=== PATIENT | female | born 1990 | race Caucasian/White ===

== ENCOUNTER 2023-05-07 20:32 | Emergency (ER) | payer OTHER, SELFPAY ==
[2023-05-07 21:04] VITALS: BP 120/76; PULSE 84; RESP 16; TEMP 36.7; O2SAT 100; BMI 20.5
--- NOTE | 2023-05-07 21:14 | ED_ITS ---
HPI - Extremity Injury (Lower) General Chief Complaint: Extremity Problem, Nontraumatic Stated Complaint: SEVERE INNER HIP PAIN Time Seen by Provider: 05/07/23 20:54 History of Present Illness HPI Narrative: presents complaining of burning pain of her right hip and pelvis. States 2017 sh rosalia had cervical cancer and has complete hysterectomy . Her ovaries remain. state she has had ongoing hip pain for past 10 months. States her PCP ordered MRI 09/2022 but she had life issues to deal with including being homeless. test was never done. Now states burning pain of her hip has increased. no new injuries. Denies dysuria but has some discomfort with passing her bowel. No fever or flank pain Related Data Allergies Allergy/AdvReac Type Severity Reaction Status Date / Time fentanyl Allergy Unknown Verified 05/07/23 21:15 hydromorphone [From Dilaudid] Allergy Unknown Verified 05/07/23 21:15 Review of Systems ROS Status of ROS 10 or more systems reviewed and unremarkable except as noted in history and below Exam Constitutional Common normals: no apparent distress, oriented x3, alert and well nourished HENDE Common normals: normocephalic and head/scalp atraumatic Eye Common normals: EOMs intact bilaterally and conjunctivae normal Chest Common normals: inspection of chest normal and palpation of chest normal Respiratory Common normals: normal respiratory effort, no retractions, no use of accessory muscles and clear to auscultation bilaterally Cardio Common normals: regular rate, regular rhythm, S1 normal heart sound and S2 normal heart sound GI Other: mild-mod tenderness RLQ Back & Pelvis Other: right hip tender FROM of the right hip Extremity Common normals: normal to inspection and full ROM Neuro Common normals: oriented x3, moves all extremities, no focal motor deficits and no sensory deficits noted Psych Appearance: grossly normal MDM - Extremity Injury (Lower) MDM Narrative Medical decision making narrative: patient presents with chronic right hip pain and found to have RLQ tenderness. C T without abnormal bony findings. found to have ovarian cyst and small segment intussusception. 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 Imaging Data CT scan - abdomen: Radiologist's impression: ice: 05/07/23 Procedure(s): CT abdomen pelvis w con Accession Number(s): [id number] cc: Physician,Non-Staff M.DJesusita~ The [address] [address] Patient Name: MATEUS CLOUD MRN: [id number] date: 1990 Sex: F Assigned Patient Location: ER Current Patient Location: ER Accession/Order Number: [id number] Exam Date: 05/07/2023 22:44 Report Date: 05/07/2023 23:17 At the request of: SHARLA HILLMAN Procedure: CT abdomen pelvis w con EXAMINATION: CT abdomen pelvis w con HISTORY: RLQ and right hip pain for one week, increasing in severity COMPARISON: CT abdomen pelvis 06/18/2022 TECHNIQUE: Axial, Coronal, and Sagittal images were obtained without and/or with IV contrast as indicated by examination type. Dose reduction techniques were achieved by using automated exposure control and/or adjustment of mA and/or kV according to patient size and/or use of iterative reconstruction technique. FINDINGS: LUNG BASES: No visible pulmonary or pleural disease. LIVER: No enlargement, atrophy, suspicious density, or significant focal lesion. BILIARY: No dilatation or calcification. PANCREAS: No lesion, fluid collection, or abnormal duct dilatation. SPLEEN: No enlargement or focal lesion. ADRENALS: No mass or enlargement. KIDNEYS: No mass, obstruction, or calcification. BOWEL/MESENTERY: Small bowel-small bowel short segment intussusception within left pelvis. No visible mass, obstruction, or bowel wall thickening. Normal appendix. AORTA/VASCULAR: No aneurysm or dissection. RETROPERITONEUM: No mass or adenopathy. LYMPH NODES: No adenopathy. URINARY BLADDER: Borderline wall thickening of urinary bladder. No appreciable stones. PELVIC ORGANS: Right ovary contains a 2.4 cm cyst and a smaller 2.0 cm cyst. Unremarkable left ovary. Hysterectomy. ABDOMINAL WALL: No mass or hernia. BONES: No bony lesion or fracture. OTHER: Negative. CT/CT abdomen pelvis w con IMPRESSION: 1.Right ovary contains a 2.4 cm and a 2.0 cm cyst; not overtly suspicious, but may contribute to patient's symptoms. No CT evidence of torsion. 2. No acute or suspicious findings of the right hip. 3. Left lower quadrant small bowel-small bowel intussusception; these are typically transient and asymptomatic. No bowel obstruction. 4. Borderline wall thickening of urinary bladder; cystitis? Electronically authenticated by: PATRICIA CAROLINA Date: 05/07/2023 23:17 Discharge Plan Discharge Chief Complaint: Extremity Problem, Nontraumatic Clinical Impression: Ovarian cyst, Chronic pain of right hip, Abdominal pain Instructions: Ovarian Cyst (ED), Abdominal Pain (ED) Additional Instructions: follow up with your movement assembly final inspector and with your family doctor Referrals: Physician,Non-Staff, MD [Primary Care Provider] - 1 week
[2023-05-07] MEDS: 0.9 % SODIUM CHLORIDE 1,000 ML 999 ML IV (21:46)
[2023-05-07 21:55] LABS: Basophils Absolute Auto 0.1 10^3/uL (0.0-0.1); Basophils Percent Auto 0.7 % (0.2-2.0); Eosinophils Absolute Auto 0.2 10^3/uL (0.0-0.7); Eosinophils Percent Auto 2.2 % (0.9-7.0); Hemoglobin 14.5 g/dL (12.0-16.0); Immature Granulocytes Abs Auto 0.03 10^3/uL (0.00-0.03); Immature Granulocytes Pct Auto 0.4 % (0.0-0.5); Lymphocytes Absolute Auto 3.1 10^3/uL (1.2-3.8); Lymphocytes Percent Auto 40.3 % (20.5-60.0); Mean Corpuscular HGB Conc 34.5 g/dL (29.9-35.2); Mean Corpuscular Hemoglobin 31.4 pg (26.7-34.0); Mean Corpuscular Volume 90.9 fL (81.0-99.0); Mean Platelet Volume 10.7 fL (9.5-13.5); Monocytes Absolute Auto 0.5 10^3/uL (0.3-0.8); Monocytes Percent Auto 7.1 % (1.7-12.0); Neutrophils Absolute Auto 3.8 10^3/uL (1.4-6.5); Neutrophils Percent Auto 49.3 % (43.0-75.0); Platelet Count 236 10^3/uL (150-450); Red Blood Count 4.62 10^6/uL (4.20-5.40); White Blood Count 7.6 10^3/uL (4.0-11.0)
[2023-05-07 21:57] LABS: Bilirubin Urine NEGATIVE (NEGATIVE); Blood Urine NEGATIVE (NEGATIVE); Clarity Urine CLEAR (CLEAR); Color Urine YELLOW (YELLOW); Glucose Urine UA NEGATIVE (NEGATIVE); Ketones Urine TRACE mg/dL (NEGATIVE); Leukocyte Esterase Urine NEGATIVE (NEGATIVE); Nitrite Urine NEGATIVE (NEGATIVE); Protein Urine NEGATIVE (NEG/TRACE); Urobilinogen Urine 0.2 EU/dL (0.2-1.0)
[2023-05-07 22:00] LABS: Urine Microscopic Indicated NO
[2023-05-07 22:05] LABS: Amphetamine Screen Urine NEGATIVE (NEGATIVE); Barbiturates Screen Urine NEGATIVE (NEGATIVE); Benzodiazepines Screen Urine NEGATIVE (NEGATIVE); Buprenorphine Screen Urine NEGATIVE (NEGATIVE); Cannabinoid Screen Urine POSITIVE (NEGATIVE); Cocaine Screen Urine NEGATIVE (NEGATIVE); Methadone Screen Urine NEGATIVE (NEGATIVE); Methamphetamines Screen Urine NEGATIVE (NEGATIVE); Opiate Screen Urine NEGATIVE (NEGATIVE); Oxycodone Screen Urine NEGATIVE (NEGATIVE); Phencyclidine Screen Urine NEGATIVE (NEGATIVE); Tricyclic Antidepressant Urine NEGATIVE (NEGATIVE)
[2023-05-07 22:11] LABS: Alanine Aminotransferase 19 U/L (14-59); Albumin Globulin Ratio 1.3; Albumin Level 3.8 g/dL (3.4-5.0); Alkaline Phosphatase 56 U/L (46-116); Anion Gap 8.1; Aspartate Amino Transferase 10 U/L (15-37); BUN Creatinine Ratio 13.9; Bilirubin Total 0.2 mg/dL (0.2-1.0); Calcium 9.1 mg/dL (8.5-10.1); Carbon Dioxide 31.3 mmol/L (21.0-32.0); Chloride 102 mmol/L (98-107); Estimated GFR (African America >60 (>=60); Estimated GFR (Non-African Ame >60 (>=60); Glucose 74 mg/dL (74-106); Potassium 3.4 mmol/L (3.5-5.1); Sodium 138 mmol/L (136-145); Total Protein 6.8 g/dL (6.4-8.2)
--- NOTE | 2023-05-07 22:19 | CT_ITS ---
[address] [address] Patient Name: MATEUS CLOUD MRN: [id number] date: 1990 Sex: F Assigned Patient Location: ER Current Patient Location: ER Accession/Order Number: [id number] Exam Date: 05/07/2023 22:44 Report Date: 05/07/2023 23:17 At the request of: SHARLA HILLMAN Procedure: CT abdomen pelvis w con EXAMINATION: CT abdomen pelvis w con HISTORY: RLQ and right hip pain for one week, increasing in severity COMPARISON: CT abdomen pelvis 06/18/2022 TECHNIQUE: Axial, Coronal, and Sagittal images were obtained without and/or with IV contrast as indicated by examination type. Dose reduction techniques were achieved by using automated exposure control and/or adjustment of mA and/or kV according to patient size and/or use of iterative reconstruction technique. FINDINGS: LUNG BASES: No visible pulmonary or pleural disease. LIVER: No enlargement, atrophy, suspicious density, or significant focal lesion. BILIARY: No dilatation or calcification. PANCREAS: No lesion, fluid collection, or abnormal duct dilatation. SPLEEN: No enlargement or focal lesion. ADRENALS: No mass or enlargement. KIDNEYS: No mass, obstruction, or calcification. BOWEL/MESENTERY: Small bowel-small bowel short segment intussusception within left pelvis. No visible mass, obstruction, or bowel wall thickening. Normal appendix. AORTA/VASCULAR: No aneurysm or dissection. RETROPERITONEUM: No mass or adenopathy. LYMPH NODES: No adenopathy. URINARY BLADDER: Borderline wall thickening of urinary bladder. No appreciable stones. PELVIC ORGANS: Right ovary contains a 2.4 cm cyst and a smaller 2.0 cm cyst. Unremarkable left ovary. Hysterectomy. ABDOMINAL WALL: No mass or hernia. BONES: No bony lesion or fracture. OTHER: Negative. CT/CT abdomen pelvis w con IMPRESSION: 1.Right ovary contains a 2.4 cm and a 2.0 cm cyst; not overtly suspicious, but may contribute to patient's symptoms. No CT evidence of torsion. 2. No acute or suspicious findings of the right hip. 3. Left lower quadrant small bowel-small bowel intussusception; these are typically transient and asymptomatic. No bowel obstruction. 4. Borderline wall thickening of urinary bladder; cystitis? Electronically authenticated by: PATRICIA CAROLINA Date: 05/07/2023 23:17
[2023-05-08] MEDS: KETOROLAC TROMETHAMINE 30 MG/ML VIAL IVP (00:27)
== END 2023-05-08 00:46 | disposition home or self-care (01) ==
PROVIDERS: Emergency Provider Internal Medicine
DX: R10.9 Unspecified abdominal pain (principal); N83.201 Unspecified ovarian cyst, right side; G89.29 Other chronic pain; M25.551 Pain in right hip; Z90.710 Acquired absence of both cervix and uterus; Z85.41 Personal history of malignant neoplasm of cervix uteri; Z59.00 Homelessness unspecified
CPT/HCPCS: 36415; 74177; 80053; 80307; 81003; 85025; 96374; 99285; Q9967

== ENCOUNTER 2024-02-14 10:19 | Emergency (ER) | payer OTHER, SELFPAY ==
[2024-02-14 10:25] VITALS: BP 126/90; PULSE 62; TEMP 36.4; O2SAT 99; BMI 19.6
--- NOTE | 2024-02-14 11:07 | CT_ITS ---
[address] [address] Patient Name: MATEUS CLOUD MRN: [id number] date: 1990 Sex: F Assigned Patient Location: ER Current Patient Location: Accession/Order Number: [id number] Exam Date: 02/14/2024 11:30 Report Date: 02/14/2024 12:12 At the request of: CARLOS ALBERTO ACEVES Procedure: CT angio abdomen pelvis EXAMINATION: CT angio abdomen pelvis HISTORY: left flank pain, hx of nutcracker syndrome COMPARISON: CT abdomen pelvis 05/07/2023 TECHNIQUE: Axial, Coronal, and Sagittal CT images without and with IV contrast. Multi-planar/3-D imaging to optimize visualization of vascular anatomy. Dose reduction techniques were achieved by using automated exposure control and/or adjustment of mA and/or kV according to patient size and/or use of iterative reconstruction technique. FINDINGS: AORTA/VASCULAR: No aneurysm or dissection. CELIAC ARTERY: Normal celiac vessels. SMA: Shallow takeoff from aorta, 16 degrees angle, with 2 mm between SMA and aorta at level of duodenum. RENAL ARTERIES: Normal renal vessels. LUNG BASES: No visible pulmonary or pleural disease. LIVER: No enlargement, atrophy, abnormal density, or significant focal lesion. BILIARY: No visible dilatation or calcification. PANCREAS: No lesion, fluid collection, ductal dilatation, or atrophy. SPLEEN: No enlargement or focal lesion. ADRENALS: No mass or enlargement. KIDNEYS: No mass, obstruction, or calcification. BOWEL/MESENTERY: No visible mass, obstruction, or bowel wall thickening. RETROPERITONEUM: No mass or adenopathy. LYMPH NODES: No adenopathy. URINARY BLADDER: No visible focal wall thickening, lesion, or calculus. PELVIC ORGANS: 1.9 cm slightly irregular hypoechoic lesion suspected to be within right ovary, likely a collapsing cyst. Prior hysterectomy. ABDOMINAL WALL: No mass or hernia. BONES: No bony lesion or fracture. OTHER: Negative. CT/CT angio abdomen pelvis IMPRESSION: 1. No appreciable acute findings to account for patient's symptoms. 2. Marked compression of left renal vein and duodenum between superior mesenteric artery and aorta; nutcracker syndrome. 3. Slightly irregular hypoechoic structure within right pelvis suspected to be an ovarian cyst/collapsing cyst; slightly smaller than previously seen. Electronically authenticated by: PATRICIA CAROLINA Date: 02/14/2024 12:12
[2024-02-14] MEDS: KETOROLAC TROMETHAMINE 30 MG/ML VIAL 15 MG IVP (11:11)
--- NOTE | 2024-02-14 11:12 | ED_ITS ---
HPI - Abdominal Pain General Chief Complaint: Abdominal Pain Stated Complaint: ABDOMINAL PAIN Time Seen by Provider: 02/14/24 10:27 Mode of arrival: walk-in History of Present Illness HPI narrative: 33-year-old female to the emergency department chief complaint of acute on chronic abdominal pain. Patient reports that she has had some left-sided flank/abdominal pain has been ongoing for over a year. She reports that she was recently diagnosed with nutcracker syndrome and has been referred to the [facility] for vascular surgery opinion. She has this upcoming the first week of March. She reports that today she was visiting her boyfriend in [place] and had an increase in pain so she decided to come to the emergency department to make sure it has not gotten worse. She denies any nausea or vomiting. She reports that she has had some increased frequent stools. She denies any fever, sweats, chills. She reports dysuria without hematuria. She denies , reports status post hysterectomy. Related Data Previous Rx's ?Medication ?Instructions ?Recorded polyethylene glycol 3350 17 17 g PO DAILY PRN constipation 02/14/24 gram/dose oral powder (Miralax) #238 grams Allergies Allergy/AdvReac Type Severity Reaction Status Date / Time aripiprazole [From Abilify] Allergy Intermediate Nightmare Verified 02/14/24 10:25 fentanyl Allergy Unknown Anaphylaxis Verified 02/14/24 10:25 hydromorphone [From Dilaudid] Allergy Unknown Anaphylaxis Verified 02/14/24 10:25 Review of Systems ROS Status of ROS 10 or more systems reviewed and unremark able except as noted in history and below Exam Narrative Exam Narrative: VITALS: I have reviewed the triage vital signs. GENERAL: Well developed, well appearing adult in no acute distress. NEURO: Alert and oriented. Moves all extremities. Face is symmetric and expressive. EYES: PERRL. No scleral icterus or conjunctival injection. No discharge. HENT: Normocephalic, atraumatic. Hearing is grossly intact. Nares grossly patent and without discharge. Mucous membranes moist. NECK: No JVD. Patient moves neck without restriction. CARDIO: Rhythm regular. Normal rate. No murmur, rub, or gallop. Pulses equal bilaterally in the upper and lower extremity. No lower extremity edema. PULM: Lungs clear to auscultation in all [place]. No wheezes, rales, or rhonchi. No conversational dyspnea. No splinting, stridor, or accessory muscle use. GI/: Abdomen is soft. Mild left upper quadrant tenderness. Normoactive bowel sounds. EXTREMITIES: Symmetric muscle bulk. No joint swelling. No clubbing, cyanosis, or deformity. SKIN: Warm and dry. Normal turgor. No rash or lesions appreciated. PSYCH: Mood, affect, and interaction is appropriate to the setting. Constitutional Vital Signs, click to edit/add: Last Vital Signs Temp 97.6 F 02/14/24 10:25 Pulse 76 02/14/24 12:09 Resp 18 02/14/24 12:09 BP 122/78 02/14/24 12:09 Pulse Ox 98 02/14/24 12:09 O2 Del Method Room Air 02/14/24 10:25 Course Vital Signs Vital signs: Vital Signs Temperature 97.6 F 02/14/24 10:25 Pulse Rate 62 02/14/24 10:25 Respiratory Rate 18 02/14/24 10:25 Blood Pressure 126/90 02/14/24 10:25 Pulse Oximetry 99 02/14/24 10:25 Oxygen Delivery Method Room Air 02/14/24 10:25 Temperature 97.6 F 02/14/24 10:25 Pulse Rate 76 02/14/24 12:09 Respiratory Rate 18 02/14/24 12:09 Blood Pressure 122/78 02/14/24 12:09 Pulse Oximetry 98 02/14/24 12:09 Oxygen Delivery Method Room Air 02/14/24 10:25 MDM - Abdominal Pain MDM Narrative Medical decision making narrative: 33-year-old female with no nutcracker syndrome to the emergency department chief complaint of left-sided flank pain. Vital stable, the patient is afebrile. She has some mild tenderness on exam. Will repeat some imaging today, obtain labs and urinalysis. Toradol for pain. Patient agrees with this plan. Patient has not been to [facility] for this complaint despite extensive workup at other facilities. She has been seen at [facility], [facility], and has been referred to the [facility]. 10/28 CTA report from outside hospital reviewed via clinBandhappy shows nutcracker syndrome, no other acute findings. Reported is stable at that time. Lab work is unremarkable. Urinalysis without evidence of infection. Her CT scan is stable. Does show significant stool burden. Discussed findings with the patient. She feels much improved after her Toradol and Zofran. Will send her home on MiraLAX. Has known ovarian cyst, unchanged. she already has outpatient follow-up for her nutcracker syndrome. Return precautions were discussed. All questions were answered. The patient was discharged home. Medical Records Attestation: I reviewed the patient's medical records. Lab Data Attestation: I reviewed the patient's lab results. Labs: Lab Results 02/14/24 02/14/24 Range/Units 10:30 11:55 WBC 13.0 H (4.0-11.0) 10^3/uL RBC 4.80 (4.20-5.40) 10^6/uL Hgb 15.5 (12.0-16.0) g/dL Hct 42.9 (36.0-48.0) % MCV 89.4 (81.0-99.0) fL MCH 32.3 (26.7-34.0) pg MCHC 36.1 H (29.9-35.2) g/dL RDW 11.6 (11.0-15.0) % Plt Count 300 (150-450) 10^3/uL MPV 11.3 (9.5-13.5) fL Neut % (Auto) 75.3 H (43.0-75.0) % Lymph % (Auto) 19.1 L (20.5-60.0) % [place] % (Auto) 4.8 (1.7-12.0) % Eos % (Auto) 0.2 L (0.9-7.0) % Baso % (Auto) 0.3 (0.2-2.0) % Neut # (Auto) 9.8 H (1.4-6.5) 10^3/uL Lymph # (Auto) 2.5 (1.2-3.8) 10^3/uL [place] # (Auto) 0.6 (0.3-0.8) 10^3/uL Eos # (Auto) 0.0 (0.0-0.7) 10^3/uL Baso # (Auto) 0.0 (0.0-0.1) 10^3/uL Abs Immat Gran (auto) 0.04 H (0.00-0.03) 10^3/uL Imm/Tot Granulo (auto) 0.3 (0.0-0.5) % Sodium 137 (136-145) mmol/L Potassium 3.7 (3.5-5.1) mmol/L Chloride 100 (98-107) mmol/L Carbon Dioxide 27.9 (21.0-32.0) mmol/L Anion Gap 12.8 BUN 8.0 (7.0-18.0) mg/dL Creatinine 0.81 (0.55-1.02) mg/dL Est GFR ( Amer) >60 (>=60) Est GFR (Non-Af Amer) >60 (>=60) BUN/Creatinine Ratio 9.9 Glucose 105 (74-106) mg/dL Calcium 9.1 (8.5-10.1) mg/dL Total Bilirubin 0.4 (0.2-1.0) mg/dL AST 12 L (15-37) U/L ALT 19 (14-59) U/L Alkaline Phosphatase 61 (46-116) U/L Total Protein 7.3 (6.4-8.2) g/dL Albumin 4.1 (3.4-5.0) g/dL Globulin 3.2 g/dL Albumin/Globulin Ratio 1.3 Lipase 28.0 (16.0-77.0) U/L Urine Color Yellow (YELLOW) Urine Clarity Clear (CLEAR) Urine pH 7.5 (5.0-9.0) Ur Specific Greer <=1.005 A (1.005-1.025) Urine Protein Negative (NEG/TRACE) mg/dL Urine Glucose (UA) Negative (NEGATIVE) mg/dL Urine Ketones Negative (NEGATIVE) mg/dL Urine Occult Blood Negative (NEGATIVE) Urine Nitrite Negative (NEGATIVE) Urine Bilirubin Negative (NEGATIVE) Urine Urobilinogen 0.2 (0.2-1.0) EU/dL Ur Leukocyte Esterase Negative (NEGATIVE) Urine RBC 0-2 (0-2) #/HPF Urine WBC 0-2 A (NONE SEEN) #/HPF Ur Squamous Epith Cells Rare (NONE/RARE) #/LPF Urine Crystals None seen (None Seen) #/HPF Urine Bacteria None seen (NONE SEEN) #/HPF Urine Casts None seen (NONE SEEN) #/LPF Urine Mucus None seen (NONE SEEN) Imaging Data CT scan - abdomen: Radiologist's impression: ITS Impressions Abdomen/Pelvis CTA 02/14/24 11:07 IMPRESSION: 1. No appreciable acute findings to account for patient's symptoms. 2. Marked compression of left renal vein and duodenum between superior mesenteric artery and aorta; nutcracker syndrome. 3. Slightly irregular hypoechoic structure within right pelvis suspected to be an ovarian cyst/collapsing cyst; slightly smaller than previously seen. Electronically authenticated by: PATRICIA CAROLINA Date: 02/14/2024 12:12 Discharge Plan Discharge Stand Alone Forms: Portal Instructions Chief Complaint: Abdominal Pain Clinical Impression: Abdominal pain, Constipation Patient Disposition: Home, Self-Care Time of Disposition Decision: 13:02 Condition: Good Mode of Transportation: Private Vehicle Prescriptions / Home Meds: New polyethylene glycol 3350 [Miralax] 17 gram/dose powder 17 g PO DAILY PRN (Reason: constipation) Qty: [id number] Print Language: Beninese Instructions: Ovarian Cyst (ED), Constipation (ED), Acute Abdominal Pain (ED) Additional Instructions: Call the office of your primary care doctor to arrange for follow-up within the above-stated timeframe. Your ED visit was focused on your acute issue and does not replace primary care. You should review your labs, imaging, and diagnoses from this ED visit with your primary care physician. There may be non-emergent/ incidental findings that need further evaluation. You should review your vital signs including blood pressure with your PCP. If you were prescribed medications you should discuss possible side-effects and drug interactions with your pharmacist. Call 911 or go to the nearest Emergency Department if you develop any new or worsening symptoms. Seek immediate medical attention if you develop: worsening abdominal pain, new or worsening nausea, new or worsening vomiting, new or worsening diarrhea, chest pain, shortness of breath, pain with urination, problems urinating, fever, chills, weakness, or any new or worsening symptoms. Keep appointments with your vascular surgeon at the [facility] to discuss your nutcracker syndrome. Referrals: Physician,Non-Staff, [Primary Care Provider] - 1 week Discharge Date/Time: 02/14/24 13:08
[2024-02-14 11:25] LABS: Basophils Percent Auto 0.3 % (0.2-2.0); Eosinophils Percent Auto 0.2 % (0.9-7.0); Hematocrit 42.9 % (36.0-48.0); Hemoglobin 15.5 g/dL (12.0-16.0); Immature Granulocytes Abs Auto 0.04 10^3/uL (0.00-0.03); Immature Granulocytes Pct Auto 0.3 % (0.0-0.5); Lymphocytes Absolute Auto 2.5 10^3/uL (1.2-3.8); Lymphocytes Percent Auto 19.1 % (20.5-60.0); Mean Corpuscular HGB Conc 36.1 g/dL (29.9-35.2); Mean Corpuscular Hemoglobin 32.3 pg (26.7-34.0); Mean Corpuscular Volume 89.4 fL (81.0-99.0); Mean Platelet Volume 11.3 fL (9.5-13.5); Monocytes Absolute Auto 0.6 10^3/uL (0.3-0.8); Monocytes Percent Auto 4.8 % (1.7-12.0); Neutrophils Absolute Auto 9.8 10^3/uL (1.4-6.5); Neutrophils Percent Auto 75.3 % (43.0-75.0); Platelet Count 300 10^3/uL (150-450); Red Cell Distribution Width 11.6 % (11.0-15.0)
[2024-02-14 11:40] LABS: Alanine Aminotransferase 19 U/L (14-59); Albumin Globulin Ratio 1.3; Albumin Level 4.1 g/dL (3.4-5.0); Alkaline Phosphatase 61 U/L (46-116); Anion Gap 12.8; Aspartate Amino Transferase 12 U/L (15-37); BUN Creatinine Ratio 9.9; Bilirubin Total 0.4 mg/dL (0.2-1.0); Calcium 9.1 mg/dL (8.5-10.1); Carbon Dioxide 27.9 mmol/L (21.0-32.0); Chloride 100 mmol/L (98-107); Estimated GFR (African America >60 (>=60); Estimated GFR (Non-African Ame >60 (>=60); Globulin 3.2 g/dL; Glucose 105 mg/dL (74-106); Potassium 3.7 mmol/L (3.5-5.1); Sodium 137 mmol/L (136-145); Total Protein 7.3 g/dL (6.4-8.2)
[2024-02-14 12:09] VITALS: BP 122/78; PULSE 76; O2SAT 98
[2024-02-14 12:16] LABS: Bilirubin Urine NEGATIVE (NEGATIVE); Blood Urine NEGATIVE (NEGATIVE); Clarity Urine CLEAR (CLEAR); Color Urine YELLOW (YELLOW); Glucose Urine UA NEGATIVE (NEGATIVE); Ketones Urine NEGATIVE (NEGATIVE); Leukocyte Esterase Urine NEGATIVE (NEGATIVE); Nitrite Urine NEGATIVE (NEGATIVE); Protein Urine NEGATIVE (NEG/TRACE); Specific Gravity Urine <=1.005 (1.005-1.025); Urobilinogen Urine 0.2 EU/dL (0.2-1.0); pH Urine 7.5 (5.0-9.0)
[2024-02-14] MEDS: ONDANSETRON PF 4 MG/2 ML VIAL IV (12:30)
[2024-02-14 12:32] LABS: Bacteria Urine NONE SEEN #/HPF (NONE SEEN); Crystals Seen? None Seen #/HPF (None Seen); Mucus Urine NONE SEEN (NONE SEEN); RBC Urine 0-2 #/HPF (0-2); Squamous Epithelial Cell Urine RARE #/LPF (NONE/RARE); WBC Urine 0-2 #/HPF (NONE SEEN)
[2024-02-14 12:33] LABS: Cast Seen? NONE SEEN #/LPF (NONE SEEN)
== END 2024-02-14 13:08 | disposition home or self-care (01) ==
PROVIDERS: Emergency Provider Student in an Organized Health Care Education/Training Program
DX: R10.9 Unspecified abdominal pain (principal); K59.00 Constipation, unspecified; I87.1 Compression of vein
CPT/HCPCS: 36415; 74174; 80053; 81001; 83690; 85025; 96374; 96375; 99285; J1885; J2405; Q9967